=== PATIENT | male | born 1990 | race Caucasian/White ===

== ENCOUNTER 2019-07-30 15:14 | Emergency (ER) | payer BC, OTHER ==
[2019-07-30 15:44] LABS: #Eosinphils 0.3 thou/uL (0.0-0.7); #Lymphocytes 1.6 thou/uL (1.20-3.40); #Monocytes 0.5 thou/uL (0.11-0.59); #Neutrophils 3.2 thou/uL (1.40-6.50); %Basophils 0.6 % (0.0-1.0); %Eosinophils 4.5 % (0.0-10.0); %Monocytes 9.2 % (0.0-10.0); %Neutrophils 57.7 % (42.0-75.0); Hemoglobin 15.1 g/dL (14.0-18.0); Mean Corpuscular HGB CONC 36.1 g/dL (32.0-36.0); Mean Corpuscular Hemoglobin 31.8 pg (27.0-31.0); Mean Corpuscular Volume 88.1 fL (78.0-98.0); Mean Platelet Volume 6.1 fL (7.4-10.4); Platelet Count 208 thou/uL (130-400); RBC Distribution Width 11.2 % (11.5-14.5); Red Blood Cell (RBC) Count 4.75 mill/uL (4.70-6.10); White Blood Cell (WBC) Count 5.6 thou/uL (4.8-10.8)
[2019-07-30 16:08] LABS: ALT (SGPT) 28 U/L (8-55); AST (SGOT) 19 U/L (5-34); Albumin 4.6 g/dL (3.5-5.0); Alkaline Phosphatase 74 U/L (40-110); Anion Gap 11 mmol/L (10-20); BUN (Urea Nitrogen) 7 mg/dL (8.9-20.6); Bilirubin, Total 0.6 mg/dL (0.2-1.2); Calc. Creatinine Clearance 0 mL/min (70-130); Calcium 9.5 mg/dL (7.8-10.44); Carbon Dioxide 27 mmol/L (22-29); Chloride 105 mmol/L (98-107); Estimated GFR-MDRD Greater than 90; Globulin 2.9 g/dL (2.4-3.5); Glucose 91 mg/dL (70-105); Potassium 3.7 mmol/L (3.5-5.1); Protein, Total 7.5 g/dL (6.0-8.3); Sodium 139 mmol/L (136-145)
[2019-07-30] MEDS ORDERED: Ketorolac Tromethamine 30 MG/ML VIAL ONE (16:29)
[2019-07-30] MEDS ORDERED: Lidocaine Viscous Sol 2% 15 ml UD Cup ONE (16:29)
[2019-07-30] MEDS ORDERED: Mag-Al 1200 mg/1200 mg/30 ML UDCUP ONE (16:29)
--- NOTE | 2019-07-30 17:09 | RAD ---
PORTABLE CHEST: 07/30/19 HISTORY: Chest pain and left arm pain. Heart size and mediastinum are within normal limits. The lungs are clear of infiltrates. No significa nt bony findings. IMPRESSION: No active intrathoracic disease. POS: [facility]
== END 2019-07-30 17:47 | disposition home or self-care (01) ==
LOC: ERS 15:14
DX: R07.9 Chest pain, unspecified (principal); K52.9 Noninfective gastroenteritis and colitis, unspecified
CPT/HCPCS: 71045; 80053; 83690; 84484; 85025; 93005; 96374; J1885

== ENCOUNTER 2021-06-18 18:19 | Emergency (ER) | payer BC, OTHER | END 2021-06-18 19:55 | disposition home or self-care (01) | LOC: ERS 18:19 | DX: M25.561 Pain in right knee (principal) ==

== ENCOUNTER 2021-07-07 13:49 | Outpatient (CLI) | payer OTHER ==
[2021-07-07 16:08] LABS: Anion Gap 12 mmol/L (10-20); BUN (Urea Nitrogen) 13 mg/dL (8.9-20.6); Calc. Creatinine Clearance 0 mL/min (70-130); Calcium 9.5 mg/dL (7.8-10.44); Carbon Dioxide 27 mmol/L (22-29); Chloride 105 mmol/L (98-107); Glucose 84 mg/dL (70-105); Potassium 4.5 mmol/L (3.5-5.1); Sodium 139 mmol/L (136-145)
[2021-07-07 16:24] LABS: #Eosinphils 0.9 10x3/uL (0.0-0.5); #Monocytes 0.5 10x3/uL (0.0-1.1); #Neutrophils 2.5 10x3/uL (1.5-8.4); %Basophils 0.5 % (0.0-2.0); %Lymphocytes 37.2 % (18.0-47.0); %Monocytes 8.4 % (0.0-10.0); %Neutrophils 39.6 % (40.0-75.0); Hemoglobin 14.1 g/dL (13.5-17.5); Mean Corpuscular HGB CONC 33.3 g/dL (32.0-36.0); Mean Platelet Volume 8.9 fl (7.4-10.4); Platelet Count 254 10x3/uL (150-450); RBC Distribution Width 11.9 % (11.5-14.5); White Blood Cell (WBC) Count 6.4 10x3/uL (3.5-10.5)
[2021-07-08 12:10] LABS: SARS-CoV-2 PCR by NAA Not Detected (NotDetected)
== END 2021-07-07 13:50 | disposition home or self-care (01) ==
LOC: LABBT 13:49
PROVIDERS: ATTEND Orthopaedic Surgery
DX: Z01.812 Encounter for preprocedural laboratory examination (principal); S83.511A Sprain of anterior cruciate ligament of right knee, initial encounter; Z20.822 Contact with and (suspected) exposure to COVID-19
CPT/HCPCS: 80048; 85025; U0003; U0005

== ENCOUNTER 2021-07-12 06:01 | Day surgery (SDC) | payer OTHER ==
[2021-07-05 11:01] VITALS: BMI 34.4
[2021-07-12] MEDS ORDERED: Midazolam HCl 2 mg/2 ml Vial ONE (06:43)
[2021-07-12] MEDS ORDERED: Fentanyl 100 MCG/2 ML VIAL ONE ×4 (06:43→10:25)
[2021-07-12] MEDS ORDERED: Lidocaine 1% (PF) 30 ML VIAL ONE (06:43)
[2021-07-12] MEDS ORDERED: ceFAZolin 2 GM/Dextrose 50 ML IVPB ONE (07:23)
[2021-07-12] MEDS ORDERED: Dexamethasone 20 MG/5 ML VIAL ONE (07:52)
[2021-07-12] MEDS ORDERED: Ondansetron PF 4 MG/2 ML Vial ONE (07:52)
[2021-07-12] MEDS ORDERED: Bupivacaine HCl 0.5%/Epinephrine 1:200,000/PF 30 ml Vial ONE (07:52)
[2021-07-12] MEDS ORDERED: Ketorolac Tromethamine 30 MG/ML VIAL ONE (07:52)
[2021-07-12] MEDS ORDERED: PROPOFOL 200 MG/20 ML VIAL ONE (07:52)
[2021-07-12] MEDS ORDERED: Lidocaine 1% PF 5 ML VIAL ONE (07:52)
[2021-07-12] MEDS ORDERED: Ropivacaine 0.2% 550 ML 550 ML NERVE BLCK SCH (08:30)
[2021-07-12] MEDS ORDERED: Zolpidem Tartrate 5 MG TAB PO PRN (08:30)
[2021-07-12] MEDS ORDERED: traMADol HCl 50 MG TAB PO PRN ×2 (08:30)
[2021-07-12] MEDS ORDERED: Ketorolac Tromethamine 30 MG/ML VIAL IVP PRN (08:30)
[2021-07-12] MEDS ORDERED: Promethazine HCl 25 MG/ML VIAL IM PRN (08:30)
[2021-07-12] MEDS ORDERED: HYDROcodone/Acetaminophen 5/325 mg Tablet PO PRN ×2 (08:30)
[2021-07-12] MEDS ORDERED: Ondansetron PF 4 MG/2 ML Vial IVP PRN (08:30)
== END 2021-07-12 13:40 | disposition home or self-care (01) ==
LOC: SDC 06:01
PROVIDERS: ATTEND Orthopaedic Surgery
PROC: 3E0T3BZ Introduction of Anesthetic Agent into Peripheral Nerves and Plexi, Percutaneous Approach (ICD-10-PCS; principal; 2021-07-12)
PROC: 0MRN47Z Replacement of Right Knee Bursa and Ligament with Autologous Tissue Substitute, Percutaneous Endoscopic Approach (ICD-10-PCS; principal; 2021-07-12)
DX: S83.511A Sprain of anterior cruciate ligament of right knee, initial encounter (principal); Z79.1 Long term (current) use of non-steroidal anti-inflammatories (NSAID); X58.XXXA Exposure to other specified factors, initial encounter
CPT/HCPCS: A4306; C1713; J0690; J1100; J1885; J2001; J2250; J2405; J2704; J2795; J3010